=== PATIENT | female | born 1970 | race Caucasian/White ===

== ENCOUNTER 2022-05-23 10:31 | Emergency (ER) | payer MEDICAID ==
[~2022-05-23] VITALS: Ht 165.1 cm; Wt 90.0 kg
[2022-05-23] MEDS ORDERED: losartan (10:39)
[2022-05-23] MEDS ORDERED: metformin (10:39)
[2022-05-23] MEDS ORDERED: ONDANSETRON HCL 4MG/2ML INJ IV STA (10:43)
[2022-05-23] MEDS ORDERED: KETOROLAC 30MG/ML VIAL IV STA (10:43)
[2022-05-23] MEDS ORDERED: SODIUM CHLORIDE 0.9% 1,000 ML IV ONE (10:45)
[2022-05-23 11:26] VITALS: BP 131/72
[2022-05-23 12:15] LABS: HEMATOCRIT. 41.7 % (36.0-48.0); HEMOGLOBIN. 13.3 g/dL (12.0-16.0); MEAN CORPUSCULAR HEMOGLOBIN 24.3 pg (28.0-32.0); MEAN CORPUSCULAR VOLUME 76.2 fL (81.0-99.0); RED BLOOD CELL COUNT 5.47 mill/uL (4.2-5.4)
[2022-05-23 12:16] LABS: BASOPHILS % 0.3 % (0.0-2.0); EOSINOPHILS % 0.4 % (0.0-5.0); MEAN PLATELET VOLUME 8.8 fl (7.4-10.4); MONOCYTES % 8.6 % (2.0-8.0); NEUTROPHILS % 82.7 % (40.0-76.0); PLATELET 274 x1000/uL (130-400); RED CELL DISTRIBUTION WIDTH 15.4 % (11.6-14.6)
[2022-05-23 12:22] LABS: PROTHROMBIN TIME 10.7 sec (9.6-11.0)
[2022-05-23 13:07] LABS: CHLORIDE 109 mEq/L (98-107)
[2022-05-23] MEDS ORDERED: DICY10CA88 MT ×2 (13:57)
[2022-05-23] MEDS ORDERED: IMOD MT (13:58)
== END 2022-05-23 14:12 | disposition home or self-care (01) ==
LOC: ER 10:31
DX: R10.9 Unspecified abdominal pain (principal); E11.9 Type 2 diabetes mellitus without complications; I10 Essential (primary) hypertension
CPT/HCPCS: 36415; 80053; 83690; 85025; 85610; 96374; 96375; 99284; J1885; J2405; J7030

== ENCOUNTER 2022-05-24 21:09 | Emergency (ER) | payer MEDICAID ==
[~2022-05-24] VITALS: Ht 160 cm; Wt 77.0 kg
[~2022-05-24 21:09] MED LIST: IMOD MT; losartan; metformin
[2022-05-24 21:27] VITALS: BP 116/55
[2022-05-24 22:44] LABS: BASOPHILS % 0.3 % (0.0-2.0); HEMATOCRIT. 39.8 % (36.0-48.0); HEMOGLOBIN. 12.9 g/dL (12.0-16.0); LYMPHOCYTES % 16.6 % (20.0-50.0); MEAN CORPUSCULAR HEMOGLOBIN 24.6 pg (28.0-32.0); MEAN CORPUSCULAR VOLUME 75.8 fL (81.0-99.0); MEAN PLATELET VOLUME 8.8 fl (7.4-10.4); MONOCYTES % 7.3 % (2.0-8.0); NEUTROPHILS % 75.8 % (40.0-76.0); PLATELET 233 x1000/uL (130-400); RED BLOOD CELL COUNT 5.24 mill/uL (4.2-5.4); RED CELL DISTRIBUTION WIDTH 15.3 % (11.6-14.6)
[2022-05-24 22:51] LABS: CHLORIDE 108 mEq/L (98-107)
== END 2022-05-25 00:46 | disposition home or self-care (01) ==
LOC: ER 21:09
DX: K52.9 Noninfective gastroenteritis and colitis, unspecified (principal); I10 Essential (primary) hypertension; E11.9 Type 2 diabetes mellitus without complications; Z20.822 Contact with and (suspected) exposure to COVID-19
CPT/HCPCS: 36415; 74176; 80053; 85025; 87426; 87804; 93005; 99285